=== PATIENT | female | born 1980 | race Caucasian/White ===

== ENCOUNTER 2021-01-18 03:01 | Outpatient (CLI) | payer OTHER, SELFPAY ==
--- NOTE | 2021-01-18 | DI.MRI_ITS ---
EXAM: MR BRAIN WO CLINICAL HISTORY: VERTIGO,R42,OTALGIA BOTH EARS,H92.03 TECHNIQUE: Multiplanar multisequence MRI of the brain was performed. COMPARISON: MR MR BRAIN WO CONTRAST from 02/26/2017 MR MR BRAIN WO CONTRAST from 02/26/2017 MR MRA HEAD WO CONTRAST from 02/26/2017 prior outside study from [facility] FINDINGS: CEREBRAL PARENCHYMA: There is no evidence of intracranial hemorrhage, mass effect, or shift of midline structures. There are no extra-axial fluid collections. Ventricles are not enlarged or shifted. There is no significant focal signal abnormality in the cerebellar hemispheres nor within the manuel, m idbrain, and thalami. There is no abnormal signal abnormality in the periventricular white matter. There is no significant focal signal abnormality evident on diffusion imaging to suggest acute ischem ic event. There are no masses in the cerebellopontine angles. PITUITARY GLAND: No mass nor parasellar abnormality. No obvious abnormality in the cavernous sinuses. FLOW VOIDS: The expected flow void are noted. No evidence of obvious aneurysm nor obvious vascular ma lformation. PARANASAL SINUSES: The visualized paranasal sinuses appear unremarkable. No obvious finding no abnorm al signal evident in the mastoid air cells. ORBITS: No obvious findings. IMPRESSION: No significant intracranial findings on this noninfused MRI scan of the brain. DATA REPOSITORY:
== END 2021-01-18 03:21 ==
PROVIDERS: Visit Provider Family Medicine
DX: R42 Dizziness and giddiness (principal); H92.03 Otalgia, bilateral
CPT/HCPCS: 70551